=== PATIENT | male | born 1990 ===

== ENCOUNTER 2020-07-12 11:41 | Emergency (ER) | payer SELFPAY ==
--- NOTE | 2020-07-12 12:23 | Emergency Department Report ---
ED General Adult HPI - General Chief complaint: Psych Stated complaint: MH/SUICIDAL PUI?: No Time Seen by Provider: 07/12/20 11:59 Source: patient, police Mode of arrival: Ambulatory Limitations: Language Barrier - History of Present Illness Initial comments: The patient was evaluated in the emergency department for symptoms described in the history of present illness. He/she was evaluated in the context of the global COVID-19 pandemic, which necessitated consideration that the patient might be at risk for infection with the virus that causes COVID-19. Institutional protocols and algorithms that pertain to the evaluation of patients at risk for COVID-19 are in a state of rapid change based on information released by regulatory bodies including the CDC and federal and state organizations. These policies and algorithms were followed during the patient's care in the emergency department. Please note that these policies, procedures and recommendations changed on a rapid basis. 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 He is not known to myself previously. He states he does not have chronic medical conditions. He is brought to the hospital by police department. Apparently, the patient was noted to be standing on a bridge. The patient indicated that he was considering suicide. He is currently not suicidal. He denies physical pain. He denies headache, neck pain, chest pain, abdominal pain, shortness of breath, currently he denies homicidality, suicidality, access to guns or to firearms. He denies cough, fever, Covid symptoms. 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 The patient is cooperative, and indicates he would like to be discharged from emergency room at this time. -: Sudden Improves with: none Worsens with: none Associated Symptoms: denies other symptoms - Related Data Allergies Allergy/AdvReac Type Severity Reaction Status Date / Time No Known Allergies Allergy Verified 07/14/20 06:05 ED Review of Systems ROS: Stated complaint: MH/SUICIDAL Other details as noted in HPI Comment: All other systems reviewed and negative Psychiatric: depression, suicidal thoughts (Patient reports resolution of suicidal thoughts.) ED Physical Exam - General Limitations: Language Barrier General appearance: alert, in no apparent distress - Head Head exam: Present: atraumatic, normocephalic - Eye Eye exam: Present: normal appearance, EOMI. Absent: nystagmus - ENT ENT exam: Present: normal exam, normal orophraynx, mucous membranes moist, normal external ear exam - Neck Neck exam: Present: normal inspection, full ROM. Absent: tenderness, meningismus - Respiratory Respiratory exam: Present: normal lung sounds bilaterally. Absent: respiratory distress, wheezes, rales, rhonchi, stridor, decreased breath sounds - Cardiovascular Cardiovascular Exam: Present: regular rate, normal rhythm, normal heart sounds. Absent: bradycardia, tachycardia, irregular rhythm, systolic murmur, diastolic murmur, rubs, gallop - GI/Abdominal GI/Abdominal exam: Present: soft. Absent: distended, tenderness, guarding, rebound, rigid, pulsatile mass - Rectal Rectal exam: Present: deferred - Extremities Exam Extremities exam: Present: normal inspection, full ROM, other (2+ pulses noted in the bilateral upper and lower extremities. There is no palpable cord. negative Homans sign. Muscular compartments are soft. The pelvis is stable.). Absent: pedal edema, calf tenderness - Back Exam Back exam: Present: normal inspection, full ROM. Absent: tenderness, CVA tenderness (R), CVA tenderness (L), paraspinal tenderness, vertebral tenderness - Neurological Exam Neurological exam: Present: alert, oriented X3, normal gait, other (No facial droop. Tongue midline. Extraocular movements intact bilaterally. Facial sensation intact to light touch in V1, V2, V3 distribution bilaterally. 5 and a 5 strength in 4 extremities. Sensation intact to light touch in 4 extremit ies.). Absent: motor sensory deficit - Psychiatric Psychiatric exam: Present: flat affect. Absent: agitated, anxious, manic, homicidal ideation - Skin Skin exam: Present: warm, dry, intact, normal color. Absent: rash ED Course Vital Signs 07/12/20 07/12/20 07/12/20 14:22 20:17 21:19 Temperature 97.4 F L 97.9 F Pulse Rate 75 55 L Respiratory 16 16 16 Rate Blood Pressure 121/65 102/60 [Right] O2 Sat by Pulse 100 99 99 Oximetry ED Medical Decision Making - Lab Data Result diagrams: 07/12/20 12:33 07/12/20 12:33 Lab Results 07/12/20 07/12/20 07/12/20 Range/Units 12:33 12:33 12:33 Hgb 15.4 H (11.8-15.2) gm/dl Hct 44.5 (35.5-45.6) % Plt Count 180 (140-440) K/mm3 Sodium 142 (137-145) mmol/L Potassium 4.4 (3.6-5.0) mmol/L Chloride 105.6 (98-107) mmol/L Carbon Dioxide 29 (22-30) mmol/L Anion Gap 12 mmol/L BUN 15 (9-20) mg/dL Creatinine 0.7 L (0.8-1.3) mg/dL Estimated GFR > 60 ml/min BUN/Creatinine Ratio 21 % Glucose 91 (75-100) mg/dL Calcium 9.2 (8.4-10.2) mg/dL Magnesium 2.20 (1.7-2.3) mg/dL Total Creatine Kinase 614 H (55-170) units/L Salicylates < 0.3 L (2.8-20.0) mg/dL Acetaminophen (10.0-30.0) ug/mL Plasma/Serum Alcohol (0-0.07) % 07/12/20 07/12/20 Range/Units 12:33 12:33 Hgb (11.8-15.2) gm/dl Hct (35.5-45.6) % Plt Count (140-440) K/mm3 Sodium (137-145) mmol/L Potassium (3.6-5.0) mmol/L Chloride (98-107) mmol/L Carbon Dioxide (22-30) mmol/L Anion Gap mmol/L BUN (9-20) mg/dL Creatinine (0.8-1.3) mg/dL Estimated GFR ml/min BUN/Creatinine Ratio % Glucose (75-100) mg/dL Calcium (8.4-10.2) mg/dL Magnesium (1.7-2.3) mg/dL Total Creatine Kinase (55-170) units/L Salicylates (2.8-20.0) mg/dL Acetaminophen 5.0 L (10.0-30.0) ug/mL Plasma/Serum Alcohol < 0.01 (0-0.07) % Vital Signs 07/12/20 14:22 Temperature 97.4 F L Pulse Rate 75 Respiratory 16 Rate Blood Pressure 121/65 [Right] O2 Sat by Pulse 100 Oximetry - Medical Decision Making Differential diagnosis, including but not limited to: General medical exam, depression, dysthymia, medical clearance for psychiatric evaluation Assessment and plan: A 29-year-old gentleman, who was afebrile, with reassuring vital signs, clinically sober, with a GCS of 15, who is calm and cooperative, does not appear to be in acute crisis at this time, with resolved psychiatric symptomatology. Screening laboratory studies unremarkable for emergent toxicologic or metabolic insult. Patient denies cough and urinary symptoms. Psychiatric consultation is pending at this time. Patient advised to remain in the emergency room pending psychiatric evaluation. At this point in time, patient does not appear to have an immediate medical contraindication to psychiatric evaluation, consultation, and if they recommended, placement, for 1013. As part of the expected psychiatric protocol, a urinalysis is ordered, however, I do not clinically suspect urinary tract infection based off of the history and physical, therefore, if psychiatry elects to discharge the patient from a psychiatric perspective, urinalysis is not medically indicated. Critical care attestation.: If time is entered above; I have spent that time in minutes in the direct care of this critically ill patient, excluding procedure time. ED Disposition Clinical Impression: General medical exam, Medical clearance for psychiatric admission, History of depression Disposition: [id number]/[id number] PSY HOSP/PSY UNIT Is pt being admited?: No Does the pt Need Aspirin: No Condition: Stable Referrals: PRIMARY CARE, [Primary Care Provider] - 3-5 Days
[2020-07-12 12:56] LABS: Hematocrit 44.5 % (35.5-45.6); Hemoglobin 15.4 gm/dl (11.8-15.2)
[2020-07-12 13:15] LABS: Blood Urea Nitrogen 15 mg/dL (9-20); Calcium 9.2 mg/dL (8.4-10.2); Hemolysis Index 18
[2020-07-12 13:19] LABS: BUN/Creatinine Ratio 21
[2020-07-12 20:56] VITALS: BP 102/60
[2020-07-13] MEDS ORDERED: LORazepam 1 MG TAB ONE (11:09)
--- NOTE | 2020-07-13 20:49 | Consultation ---
History of Present Illness - Reason for Consult Consult date: 07/13/20 Reason for consult: SI - History of Present Psychiatric Illness Humberto Phoenix is a 29y/o male patient who presented to the ER for suicidal thoughts of wanting to throw himself off of a bridge. During my interview with the patient today, he was lying down. He is a/o x 3. 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 The patient states he has a lot of problems. He says he had thought about suicide at the time because "I can't find no job." He denies any thoughts of self harm at present, "he says no, I only felt like that because I was pressured because I didn't have a job." He says, "I don't want to hurt myself at all. I want to go home to my family." The patient admits to "doing meth a few days ago." He says he attempted suicide "about 4 years ago." The patient denies taking any psych meds. Psychiatric History Diagnoses: Depression Suicide attempts: Once Hospitalizations: Once Medications tried: Denies Outpatient treatment: Denies Past Medical History None reported Social History Status: Living arrangement: Family Substance abuse: meth Highest level of education: high school grad Legal history: Denies REVIEW OF SYSTEMS Constitutional: Negative for weight loss ENT: Negative for stridor Respiratory: Negative for cough or hemoptysis All other systems reviewed and are negative MSE Appearance: Dressed appropriately. Awake Behavior: calm and cooperative Mood: "better" Affect: Congruent Thought Process: Goal directed Speech: Normal tone and pace Thought Content Suicidal: Denies Homicidal: Denies Hallucinations: Denies Delusions: None elicted Consciousness: Alert Cognition/Memory: Good Insight/Judgment: Limited Diagnoses: Major Depressive Disorder Methamphetamine Use Disorder Plan Zoloft 25mg po daily Sitter: Defer to primary Medical: Per primary Disposition: Do recommend acute inpatient treatment. The patient understands that if SI/HI or any fear of endangerment arise she should seek immediate assistance including but not limited to the crisis hotline, 911, ER. The city assessor is to discuss safety plan, outpatient resources, cognitive behavior therapy, drug rehab The patient to abstain from all illicit drug use She is to follow up with outpatient psych in 7 to 14 days upon discharge Will sign off. Thank you for this consult. Medications and Allergies Allergies Allergy/AdvReac Type Severity Reaction Status Date / Time No Known Allergies Allergy Unverified 07/12/20 13:57 Mental Status Exam - Vital signs Last Vital Signs Temp 97.9 F 07/12/20 20:17 Pulse 55 L 07/12/20 20:17 Resp 16 07/12/20 21:19 BP 102/60 07/12/20 20:17 Pulse Ox 99 07/12/20 21:19 Results Result Diagrams: 07/12/20 12:33 07/12/20 12:33 All other labs normal.
== END 2020-07-13 17:11 ==
LOC: ED 11:41
DX: F32.9 Major depressive disorder, single episode, unspecified (principal); Z00.01 Encounter for general adult medical examination with abnormal findings; Z04.6 Encounter for general psychiatric examination, requested by authority
CPT/HCPCS: 36415; 80048; 80320; 82550; 83735; 85014; 85018; 85049; G0480